=== PATIENT | female | born 2005 | race Two or more races ===

== ENCOUNTER 2024-04-22 23:12 | Emergency (ER) | payer SELFPAY ==
--- NOTE | ~2024-04-22 | XR_ITS ---
CLINICAL HISTORY: dyspnea cough congestion 2 view chest x-ray Comparison: None Findings: Left midlung calcified granuloma. No consolidation or effusion. Heart size is normal. No acute fracture. IMPRESSION: No consolidation. This document has been electronically signed by: Margie Louis MD on 04/23/2024 01:14:17
[2024-04-22 23:16] VITALS: BP 123/72; PULSE 91; RESP 16; TEMP 36.6; O2SAT 100; BMI 23.2
[2024-04-22 23:57] LABS: IDNOW Serial# 6674DD1D; Strep A Nucleic Acid Negative (Negative)
[2024-04-23 00:17] LABS: Influenza A PCR NEGATIVE (Negative); Influenza B PCR NEGATIVE (Negative); Resp Syncy Virus RNA Qual PCR NEGATIVE (Negative); SARS COV2 PCR INHOUSE NEGATIVE (Negative)
[2024-04-23 00:25] LABS: HCG Quantitative < 2 mIU/mL
--- NOTE | 2024-04-23 03:16 | ED.URI ---
HPI - URI/Sore Throat General Chief Complaint: Upper Respiratory Symptoms Stated Complaint: Dizziness, Anxiety, passed out Time Seen by Provider: 04/23/24 02:48 Source: patient and interpreter for the deaf Mode of arrival: ambulatory Limitations: no limitations History of Present Illness ED Provider: DR. Barragan HPI Narrative: 18-year-old female came in for evaluation of SOB, cough, congestion, feeling dizzy, syncopal episode, nasal congestion No fever, no chills, patient in school with no known exposure to a sick contact. Related Data Previous Rx's ?Medication ?Instructions ?Recorded albuterol sulfate 90 mcg/actuation 1 inh inhalation QID PRN shortness 04/23/24 aerosol inhaler of breath or wheezing #8.5 grams prednisone 20 mg tablet 20 mg PO BID #10 tabs 04/23/24 Allergies Allergy/AdvReac Type Severity Reaction Status Date / Time No Known Allergies Allergy Verified 04/22/24 23:20 Review of Systems Review of Systems: All other systems are reviewed and are negative Constitutional: Reports as per HPI and Reports no additional constitutional complaints Eyes: Reports as per HPI and Reports no additional eye complaints Reports system reviewed and no additional complaints, except as documented Cardiovascular: Reports as per HPI and Reports no additional cardiovascular complaints Respiratory: Reports as per HPI and Reports no additional respiratory complaints Gastrointestinal: Reports as per HPI and Reports no additional gastrointestinal complaints Genitourinary: Reports no additional female genitourinary complaints Musculoskeletal: Reports no additional musculoskeletal complaints Skin/Breast: Reports system reviewed and no additional complaints, except as docu Psychiatric: Reports no additional psychiatric complaints Endocrine: Reports no additional endocrine complaints Hematologic/Lymphatic: Reports no additional hematologic/lymphatic complaints Allergic/Immunologic: Reports no additional allergic/immunologic complaints Reports system reviewed and no additional complaints, except as documented and Reports Abnormal speech present Physical Exam Vital Signs: Vital Signs: Last Vital Signs Temp 97.9 F 04/22/24 23:16 Pulse 91 04/22/24 23:16 Resp 16 04/22/24 23:16 BP 123/72 04/22/24 23:16 Pulse Ox 100 04/22/24 23:16 O2 Del Method Room Air 04/22/24 23:16 BMI result Body Mass Index 23.2 Vital signs have been reviewed and appear to be correct. Blood pressure elevated. Heart rate normal. Respiratory rate normal. Temperature normal. Oxygen saturation normal. Appearance: Alert. Oriented X3. No acute distress. Head: Normal external exam. Normocephalic. Atraumatic. No Louise signs noted. No raccoon eyes noted Eyes: PERRLA. EOMI. Conjunctiva and sclera normal. Eyelids normal. ENT: TM's Normal. Pharynx normal. Uvula midline. Moist mucous membranes. No trismus noted. No drooling noted. No muffled voice noted. Neck: Normal inspection. Neck supple. FROM. No adenopathy. Thyroid Normal. No meningeal signs. No neck mass noted. CVS: Normal heart rate and rhythm. Heart sound normal. No murmurs noted. Pulses normal throughout. Respiratory: No respiratory distress. Painless inspiration. Breath sounds normal. Mild diffuse expiratory wheezing with prolonged expiration.Chest nontender. No accessory muscle usage noted or decreased air movement noted. Abdomen: Soft and nontender. Bowel sounds normal in all 4 quadrants. No distention noted. No organomegaly noted. No visible injury noted. Back: No CVA tenderness. Full range of motion noted. Skin: Skin warm and dry. Normal skin color. Normal skin turgor. No rashes/lesions/lacerations noted. Extremities: No lower extremity edema. Extremities exhibit normal range of motion. Extremities nontender. Neuro: Oriented X 3. Cranial nerve exam: II-XII are grossly intact No motor deficit. No sensory deficit. Reflexes normal. Course Reevaluation(s) Reevaluation #1: 18-year-old female with upper respiratory symptoms, dizziness, anxiety. Will start the patient on prednisone /albuterol. Time: 03:19 Medical Decision Making Differential Diagnosis Differential Diagnoses: The differential diagnosis associated with the presentation includes ( pneumonia, pneumothorax, pleural effusion, influenza, RSV, COVID-19 infection, , strep pharyngitis.) Admission/Observation Consideration of admission/observation: Escalation of care including admission/observation considered Lab Data MDM Lab Attestation statement: I reviewed the patient's lab results. Labs: Lab Results 04/22/24 04/22/24 Range/Units 23:34 23:55 Beta HCG, Quant < 2 mIU/mL Influenza Type A (PCR) NEGATIVE (Negative) Influenza Type B (PCR) NEGATIVE (Negative) RSV RNA Qual (PCR) NEGATIVE (Negative) SARS-CoV-2 RNA (RT-PCR) NEGATIVE (Negative) S. pyogenes GrpA WATSON Negative (Negative) Independent Interpretation I performed an independent interpretation of an: Plain X-Ray ( Chest:Left midlung calcified granuloma. No consolidation or effusion. Heart size is normal. No acute fracture.) Radiology Impression Discussion of test interpretation with radiology: I have reviewed the radiologist's reading. Discharge Plan Discharge Clinical Impression: Bronchitis Patient Disposition: Home, Self-Care Instructions: Acute Bronchitis (ED) Prescriptions: New prednisone 20 mg tablet 20 mg PO BID Qty: 10 0RF albuterol sulfate 90 mcg/actuation HFA aerosol inhaler 1 inh inhalation QID PRN (Reason: shortness of breath or wheezing) Qty: 8.5 0RF Print Language: Bangladeshi
[2024-04-23 03:40] VITALS: BP 123/72; PULSE 91; RESP 16; TEMP 36.6; O2SAT 100
== END 2024-04-23 03:40 | disposition home or self-care (01) ==
PROVIDERS: Emergency Provider Emergency Medicine
DX: J40 Bronchitis, not specified as acute or chronic (principal); R05.9 Cough, unspecified; R06.02 Shortness of breath; J98.4 Other disorders of lung; R42 Dizziness and giddiness; Z03.818 Encounter for observation for suspected exposure to other biological agents ruled out
CPT/HCPCS: 0241U; 36415; 71046; 84702; 87651; 99282; 99283

== ENCOUNTER → 2024-04-23 00:42 | Outpatient (BNV) | payer SELFPAY | PROVIDERS: Visit Provider Radiology Diagnostic Radiology | DX: R05.9 Cough, unspecified (principal); R06.00 Dyspnea, unspecified; R09.81 Nasal congestion | CPT/HCPCS: 71046 ==